=== PATIENT | male | born 1985 | race Caucasian/White ===

== ENCOUNTER 2017-05-21 13:49 | Emergency (ER) | payer MEDICAID ==
[~2017-05-21] VITALS: Ht 167.6 cm; Wt 76.4 kg
[~2017-05-21 13:49] MED LIST: ALBU0.0939
[2017-05-21 14:25] VITALS: BP 160/90
[2017-05-21] MEDS: IBUPROFEN 800 MG TAB PO ONE (14:42)
[2017-05-21 16:40] VITALS: BP 135/81
== END 2017-05-21 16:39 | disposition home or self-care (01) ==
LOC: MED 13:49
DX: S60.111A Contusion of right thumb with damage to nail, initial encounter (principal); X58.XXXA Exposure to other specified factors, initial encounter; Y93.89 Activity, other specified; Y92.89 Other specified places as the place of occurrence of the external cause; Y99.8 Other external cause status
CPT/HCPCS: 11740; 73130; 99284

== ENCOUNTER 2017-07-18 20:55 | Emergency (ER) | payer MEDICAID ==
[~2017-07-18] VITALS: Ht 167.6 cm; Wt 72.2 kg
[2017-07-18 21:03] VITALS: BP 145/107
--- NOTE | 2017-07-18 21:09 | NUR ---
AMBULATED TO ER BED 4
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
[2017-07-18] MEDS ORDERED: NACL 0.9% 1,000 ML IV ONE (21:25)
[2017-07-18] MEDS ORDERED: fentaNYL 0.05 MG/ML VIAL IVP ONE (21:25)
--- NOTE | 2017-07-18 21:45 | NUR ---
PT RESTING IN BED, AWATING FOR RESULTS. NO S/S OF DISTRESS NOTED AT THE MOMENT.
[2017-07-18 21:46] LABS: BASOPHILS # (AUTO) 0.2 K/uL (0.00-0.22); BASOPHILS % (AUTO) 3.4 % (0.0-2.0); EOSINOPHILS # (AUTO) 0.2 K/uL (0-0.4); EOSINOPHILS % (AUTO) 3.5 % (0.0-4.0); HEMATOCRIT 39.3 % (36-52); HEMOGLOBIN 13.1 g/dL (12.0-18.0); LYMPHOCYTES # (AUTO) 0.9 K/uL (2.0-11.5); LYMPHOCYTES % (AUTO) 20.2 % (20.5-51.1); MEAN CORPUSCULAR HEMOGLOBIN 33 pg (27-31); MEAN CORPUSCULAR HGB CONC 33 g/dL (33-37); MEAN CORPUSCULAR VOLUME 99 fL (80-94); MONOCYTES # (AUTO) 0.4 K/uL (0.8-1.0); MONOCYTES % (AUTO) 9.5 % (1.7-9.3); NEUTROPHILS # (AUTO) 2.9 K/uL (1.8-7.7); NEUTROPHILS % (AUTO) 63.4 % (42.2-75.2); PLATELET COUNT (AUTO) 79 K/uL (140-450); RED BLOOD CELL COUNT(AUTO) 3.98 MIL/uL (4.20-6.10); RED CELL DISTRIBUTION WIDTH 13.2 % (11.6-13.7); WHITE BLOOD COUNT (AUTO) 4.6 K/uL (4.8-10.8)
[2017-07-18 21:47] LABS: APPEARANCE,URINE CLEAR (CLEAR); BILIRUBIN,URINE NEGATIVE (NEGATIVE); BLOOD, URINE TRACE-L (NEGATIVE); COLOR,URINE YELLOW (YELLOW); LEUKOCYTE ESTERASE ,URINE NEGATIVE (NEGATIVE); NITRITE, URINE NEGATIVE (NEGATIVE); UGLUCOSE NEGATIVE (NEGATIVE)
[2017-07-18 21:57] LABS: RBC,URINE 0-5 (RARE) /HPF (0-5); WBC,URINE 0-5 (RARE) /HPF (0-5)
[2017-07-18 22:13] LABS: ALBUMIN 3.7 g/dL (3.4-5.0); ANION GAP 12.8 (8-16); CARBON DIOXIDE 28.9 mmol/L (21-32); CREATININE 0.7 mg/dL (0.7-1.3); POTASSIUM 3.7 mmol/L (3.5-5.1); TOTAL BILIRUBIN 0.8 mg/dL (0.0-1.0)
--- NOTE | 2017-07-18 22:25 | NUR ---
ENDING TIME FOR NS 0.9% WAS 2225. A TOTAL AMOUNT OF 1000ML.
[2017-07-18 22:56] VITALS: BP 135/80
--- NOTE | 2017-07-18 22:56 | NUR ---
Patient discharged with v/s stable. Written and verbal after care instructions given and explained. Patient alert, oriented and verbalized understanding of instructions. Ambulatory with steady gait. All questions addressed prior to discharge. ID band removed. Patient advised to follow up with PMD. Rx of PREDNISONE, AND TRAMADOL given. Patient educated on indication of medication including possible reaction and side effects. Opportunity to ask questions provided and answered.
== END 2017-07-18 22:56 | disposition home or self-care (01) ==
LOC: MED 20:55
DX: F10.20 Alcohol dependence, uncomplicated (principal); I10 Essential (primary) hypertension
CPT/HCPCS: 36415; 80053; 81001; 85025; 85610; 85730; 96361; 96374; 99284; J3010; J7030

== ENCOUNTER 2017-08-09 19:57 | Emergency (ER) | payer MEDICAID ==
[~2017-08-09] VITALS: Ht 167.6 cm; Wt 6.9 kg
[2017-08-09 20:35] VITALS: BP 129/86
[2017-08-09] MEDS ORDERED: NAPR500T1 PO (20:39)
--- NOTE | 2017-08-09 22:40 | NUR ---
PT TAKEN TO BED 11
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
--- NOTE | 2017-08-09 23:53 | NUR ---
Dr. Fiore evaluating patient at bedside.
[2017-08-10 00:38] VITALS: BP 138/79
--- NOTE | 2017-08-10 00:39 | NUR ---
Patient discharged with v/s stable. Written and verbal after care instructions given and explained. Patient alert, oriented and verbalized understanding of instructions. Ambulatory with steady gait. All questions addressed prior to discharge. ID band removed. Patient advised to follow up with PMD. Rx of atarax 25 mg, norco 5mg given. Patient educated on indication of medication including possible reaction and side effects. Opportunity to ask questions provided and answered.
== END 2017-08-10 00:39 | disposition home or self-care (01) ==
LOC: MED 19:57
DX: S20.20XA Contusion of thorax, unspecified, initial encounter (principal); R44.2 Other hallucinations; F41.9 Anxiety disorder, unspecified; I10 Essential (primary) hypertension; F12.90 Cannabis use, unspecified, uncomplicated; F32.9 Major depressive disorder, single episode, unspecified; Z79.899 Other long term (current) drug therapy; Y04.0XXA Assault by unarmed brawl or fight, initial encounter; Y93.89 Activity, other specified; Y92.89 Other specified places as the place of occurrence of the external cause; Y99.8 Other external cause status
CPT/HCPCS: 81002; 99283

== ENCOUNTER 2018-08-12 19:19 | Emergency (ER) | payer MEDICAID ==
[~2018-08-12] VITALS: Ht 170.2 cm; Wt 81.6 kg
[~2018-08-12 19:19] MED LIST changes: +NAPR-54 PO
[2018-08-12 19:27] VITALS: BP 132/84
[2018-08-12] MEDS ORDERED: KETOROLAC 30 MG/ML VIAL IM ONE (21:05)
[2018-08-12 23:05] VITALS: BP 128/87
== END 2018-08-12 22:40 | disposition home or self-care (01) ==
LOC: MED 19:19
DX: M54.17 Radiculopathy, lumbosacral region (principal); I10 Essential (primary) hypertension; Z79.899 Other long term (current) drug therapy; Z79.51 Long term (current) use of inhaled steroids
CPT/HCPCS: 72131; 96372; 99284; J1885

== ENCOUNTER 2019-07-13 08:51 | Emergency (ER) | payer MEDICAID, OTHER ==
[~2019-07-13] VITALS: Ht 165.1 cm; Wt 79.4 kg
[2019-07-13 08:56] VITALS: BP 140/92
[2019-07-13 09:42] LABS: BASOPHILS % (AUTO) 1.2 % (0.0-2.0); EOSINOPHILS # (AUTO) 0.1 K/uL (0-0.4); HEMOGLOBIN 13.5 g/dL (12.0-18.0); LYMPHOCYTES # (AUTO) 0.5 K/uL (2.0-11.5); LYMPHOCYTES % (AUTO) 18.1 % (20.5-51.1); MEAN CORPUSCULAR HEMOGLOBIN 35 pg (27-31); MEAN CORPUSCULAR HGB CONC 34 g/dL (33-37); MEAN CORPUSCULAR VOLUME 103.2 fL (80-94); MONOCYTES # (AUTO) 0.3 K/uL (0.8-1.0); MONOCYTES % (AUTO) 11.7 % (1.7-9.3); PLATELET COUNT (AUTO) 83 K/uL (140-450); RED BLOOD CELL COUNT(AUTO) 3.87 MIL/uL (4.20-6.10); RED CELL DISTRIBUTION WIDTH 15.4 % (11.6-13.7)
[2019-07-13 10:15] LABS: ANION GAP 16.1 (8-16); CARBON DIOXIDE 26.6 mmol/L (21-32); CREATININE 0.6 mg/dL (0.7-1.3); POTASSIUM 3.7 mmol/L (3.5-5.1)
[2019-07-13 10:21] LABS: ALBUMIN 3.8 g/dL (3.4-5.0); TOTAL BILIRUBIN 1.7 mg/dL (0.0-1.0)
[2019-07-13] MEDS ORDERED: ONDANSETRON 4 MG/2 ML VIAL IVP ONE (12:00)
[2019-07-13 13:09] VITALS: BP 117/85
== END 2019-07-13 13:10 ==
LOC: MED 08:51
DX: R04.0 Epistaxis (principal); K70.9 Alcoholic liver disease, unspecified; D69.6 Thrombocytopenia, unspecified; F10.10 Alcohol abuse, uncomplicated; I10 Essential (primary) hypertension; F12.90 Cannabis use, unspecified, uncomplicated; Z79.899 Other long term (current) drug therapy
CPT/HCPCS: 30901; 36415; 80053; 85025; 85610; 85730; 96374; 99284; J2405; 99283

== ENCOUNTER 2019-07-15 10:56 | Emergency (ER) | payer OTHER ==
[~2019-07-15] VITALS: Ht 170.2 cm; Wt 75.7 kg
[2019-07-15 11:03] VITALS: BP 129/82
[2019-07-15 11:53] VITALS: BP 129/82
== END 2019-07-15 11:53 | disposition home or self-care (01) ==
LOC: MED 10:56
DX: R04.0 Epistaxis (principal); K21.9 Gastro-esophageal reflux disease without esophagitis; I10 Essential (primary) hypertension; F12.90 Cannabis use, unspecified, uncomplicated; Z79.899 Other long term (current) drug therapy
CPT/HCPCS: 99281

== ENCOUNTER 2021-12-02 09:59 | Emergency (ER) | payer OTHER ==
[~2021-12-02] VITALS: Ht 167.6 cm; Wt 79.4 kg
[2021-12-02 10:13] VITALS: BP 126/74
--- NOTE | 2021-12-02 10:31 | NUR ---
PATIENT AMBULATED TO BED 2.
--- NOTE | 2021-12-02 10:47 | NUR ---
Dr Little at bedside to assess pt at this time
[2021-12-02] MEDS ORDERED: cefTRIAXone 1,000 MG VIAL ONE (10:50)
[2021-12-02] MEDS ORDERED: LIDOCAINE MPF 1% 5 ML ONE (10:51)
--- NOTE | 2021-12-02 11:00 | NUR ---
Blood drawn and walked down to lab
[2021-12-02] MEDS: DOXYCYCLINE 100 MG CAP PO SCH (11:15)
[2021-12-02] MEDS: KETOROLAC 60 MG/2 ML VIAL IM ONE (11:17)
[2021-12-02] MEDS: cefTRIAXone 1,000 MG in LIDOCAINE MPF 1% 2.1 ML IM ONE (11:18)
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
[2021-12-02] MEDS ORDERED: CLOT14CR2 TP (11:48)
[2021-12-02] MEDS ORDERED: DOXY-487 PO (11:48)
[2021-12-02 12:00] VITALS: BP 121/68
--- NOTE | 2021-12-02 12:02 | NUR ---
Patient discharged with v/s stable. Written and verbal after care instructions given and explained. Patient verbalized understanding. Ambulatory with steady gait. All questions addressed prior to discharge. Advised to follow up with PMD.
[2021-12-02 13:54] LABS: APPEARANCE,URINE CLEAR (CLEAR); BILIRUBIN,URINE NEGATIVE (NEGATIVE); BLOOD, URINE TRACE-I (NEGATIVE); COLOR,URINE YELLOW (YELLOW); LEUKOCYTE ESTERASE ,URINE NEGATIVE (NEGATIVE); NITRITE, URINE NEGATIVE (NEGATIVE); UGLUCOSE NEGATIVE (NEGATIVE)
[2021-12-02 13:56] LABS: WBC,URINE 0 /HPF (0-5)
== END 2021-12-02 12:00 | disposition home or self-care (01) ==
LOC: MED 09:59
DX: N48.1 Balanitis (principal); N47.2 Paraphimosis
CPT/HCPCS: 36415; 54450; 81001; 82948; 86592; 87252; 96372; 99284; J0696; J1885; J2001

== ENCOUNTER 2022-11-20 12:39 | Emergency (ER) | payer OTHER ==
[~2022-11-20] VITALS: Ht 12.7 cm; Wt 2.7 kg
[~2022-11-20 12:39] MED LIST changes: +CLOT14CR2 TP; +DOXY-487 PO
--- NOTE | 2022-11-20 12:42 | NUR ---
PATIENT BIBA TO BED 9
[2022-11-20 12:45] VITALS: BP 135/95
[2022-11-20] MEDS ORDERED: KETOROLAC 15 MG/ML VIAL IM ONE (13:10)
--- NOTE | 2022-11-20 13:12 | NUR ---
[place] [facility] AT BEDSIDE
--- NOTE | 2022-11-20 13:16 | NUR ---
X-RAY AT BEDSIDE
[2022-11-20] MEDS ORDERED: HYDROcodone/APAP 5/325 MG 1 TAB TAB PO SCH (13:55)
--- NOTE | 2022-11-20 14:05 | NUR ---
Pt endorses 7/10 non-radiating dull pain to right leg. Non-pharm interventions not effective. Medications given.
[2022-11-20] MEDS ORDERED: NAPR-1704 PO (14:28)
[2022-11-20] MEDS ORDERED: ACET-8905 PO (14:28)
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
== END 2022-11-20 14:45 | disposition home or self-care (01) ==
LOC: MED 12:39
DX: S93.401A Sprain of unspecified ligament of right ankle, initial encounter (principal); V49.88XA Car occupant (driver) (passenger) injured in other specified transport accidents, initial encounter; Y93.89 Activity, other specified; Y92.89 Other specified places as the place of occurrence of the external cause; Y99.8 Other external cause status
CPT/HCPCS: 29515; 71045; 73590; 73610; 96372; 99284; J1885; Q0092

== ENCOUNTER 2023-09-02 21:30 | Emergency (ER) | payer OTHER ==
[~2023-09-02] VITALS: Ht 165.1 cm; Wt 79.8 kg
[~2023-09-02 21:30] MED LIST changes: +ACET-8905 PO; +NAPR-1704 PO
[2023-09-02 21:39] VITALS: BP 141/94; PULSE 105; RESP 16; TEMP 97.6; O2SAT 99
[2023-09-02] MEDS ORDERED: ACET-8905 PO (22:47)
[2023-09-02] MEDS ORDERED: IBUP-2213 PO (22:47)
[2023-09-02 23:27] VITALS: BP 135/88; PULSE 88; RESP 16; TEMP 97.6; O2SAT 99
== END 2023-09-02 23:27 | disposition home or self-care (01) ==
LOC: MED 21:30
DX: S62.317A Displaced fracture of base of fifth metacarpal bone, left hand, initial encounter for closed fracture (principal); K21.9 Gastro-esophageal reflux disease without esophagitis; I10 Essential (primary) hypertension; Z79.899 Other long term (current) drug therapy; X58.XXXA Exposure to other specified factors, initial encounter; Y93.89 Activity, other specified; Y92.89 Other specified places as the place of occurrence of the external cause; Y99.8 Other external cause status
CPT/HCPCS: 73130; 99283

== ENCOUNTER 2023-09-20 17:11 | Emergency (ER) | payer OTHER ==
[~2023-09-20] VITALS: Ht 162.6 cm; Wt 81.6 kg
[~2023-09-20 17:11] MED LIST changes: +IBUP-2213 PO
[2023-09-20 17:30] VITALS: BP 126/91; PULSE 120; RESP 20; TEMP 98; O2SAT 98
[2023-09-20 19:43] VITALS: BP 130/96; PULSE 86; RESP 16; O2SAT 99
== END 2023-09-20 19:43 | disposition home or self-care (01) ==
LOC: MED 17:11
DX: S02.2XXA Fracture of nasal bones, initial encounter for closed fracture (principal); S10.81XA Abrasion of other specified part of neck, initial encounter; S80.02XA Contusion of left knee, initial encounter; S80.01XA Contusion of right knee, initial encounter; I10 Essential (primary) hypertension; K21.9 Gastro-esophageal reflux disease without esophagitis; Z79.899 Other long term (current) drug therapy; Y08.89XA Assault by other specified means, initial encounter; Y93.89 Activity, other specified; Y92.89 Other specified places as the place of occurrence of the external cause; Y99.8 Other external cause status
CPT/HCPCS: 70450; 70486; 72125; 73562; 90471; 90715; 99285

== ENCOUNTER 2024-06-27 14:51 | Emergency (ER) | payer OTHER ==
[~2024-06-27] VITALS: Ht 172.7 cm; Wt 72.6 kg
[~2024-06-27 14:51] MED LIST changes: +NAPR-337 PO; -NAPR-54 PO
[2024-06-27 15:37] VITALS: BP 135/92; PULSE 88; RESP 20; TEMP 98; O2SAT 99
[2024-06-27] MEDS ORDERED: MORPHINE SULFATE 10 MG/ML VIAL ONE (16:07)
[2024-06-27] MEDS: MORPHINE SULFATE 4 MG/ML SYR IVP ONE (16:08)
[2024-06-27 16:12] VITALS: O2SAT 99
[2024-06-27 17:45] LABS: BASOPHILS % (AUTO) 0.5 % (0.0-2.0); EOSINOPHILS # (AUTO) 0.1 K/uL (0-0.4); HEMATOCRIT 46.6 % (36-52); HEMOGLOBIN 15.8 g/dL (12.0-18.0); LYMPHOCYTES # (AUTO) 0.5 K/uL (2.0-11.5); LYMPHOCYTES % (AUTO) 5.8 % (20.5-51.1); MEAN CORPUSCULAR HEMOGLOBIN 33 pg (27-31); MEAN CORPUSCULAR HGB CONC 34 g/dL (33-37); MEAN CORPUSCULAR VOLUME 96.9 fL (80-94); MONOCYTES # (AUTO) 0.4 K/uL (0.8-1.0); MONOCYTES % (AUTO) 4.4 % (1.7-9.3); NEUTROPHILS # (AUTO) 7.8 K/uL (1.8-7.7); NEUTROPHILS % (AUTO) 88.3 % (42.2-75.2); PLATELET COUNT (AUTO) 139 K/uL (140-450); RED CELL DISTRIBUTION WIDTH 13.2 % (11.6-13.7); WHITE BLOOD COUNT (AUTO) 8.8 K/uL (4.8-10.8)
[2024-06-27 17:52] LABS: ANION GAP 12.3 (8-16); CALCIUM 8.5 mg/dL (8.5-10.1); CARBON DIOXIDE 31.1 mmol/L (21-32); CREATININE 0.8 mg/dL (0.6-1.3); POTASSIUM 3.4 mmol/L (3.5-5.1)
[2024-06-27 18:02] LABS: ALANINE AMINOTRANSFERASE 62 U/L (12-78); ALBUMIN 3.9 g/dL (3.4-5.0); ALCOHOL, BLOOD 191 mg/dL (<10); ALKALINE PHOSPHATASE 68 U/L (50-136); ASPARTATE AMINOTRANSFERASE 92 U/L (15-37); BILIRUBIN,DIRECT 0.2 mg/dL (0.0-0.3); TOTAL BILIRUBIN 0.6 mg/dL (0.0-1.0); TOTAL PROTEIN, SERUM 7.9 g/dL (6.4-8.2)
== END 2024-06-27 16:20 | disposition short-term general hospital (02) ==
LOC: MED 14:51
DX: S02.32XA Fracture of orbital floor, left side, initial encounter for closed fracture (principal); R41.82 Altered mental status, unspecified; K21.9 Gastro-esophageal reflux disease without esophagitis; I10 Essential (primary) hypertension; Y04.0XXA Assault by unarmed brawl or fight, initial encounter; Y92.89 Other specified places as the place of occurrence of the external cause; Y93.89 Activity, other specified; Y99.8 Other external cause status
CPT/HCPCS: 36415; 70450; 70486; 71045; 80048; 80076; 84484; 85025; 93005; 96374; 99285; G0482; J2270; Q0092